=== PATIENT | male | born 1995 | race Caucasian/White ===

== ENCOUNTER 2019-08-22 08:17 | Emergency (ER) | payer OTHER, SELFPAY ==
[2019-08-22 08:48] VITALS: BP 129/78; PULSE 85; RESP 18; TEMP 37.2; O2SAT 98
--- NOTE | 2019-08-22 08:49 | ED.ABDPAIN ---
HPI - Abdominal Pain General Chief Complaint: Abdominal Pain Stated Complaint: Abdominal pain Time Seen by Provider: 08/22/19 08:49 Source: patient and RN notes reviewed History of Present Illness HPI narrative: Patient is a 24-year-old male that presents the urgent care with complaints of abdominal pain associated with nausea and vomiting. Patient states that he was not feeling well yesterday and he woke up at 3 AM with diarrhea and vomiting. Patient states is been a couple hours since he vomited but he has had 7-8 loose stools with the last one being just prior to arrival. Patient states the last thing he ate was [employer]. Denies of any fever. Currently states that the abdominal pain is not too severe . States that he is mainly concerned that he called off work and needs a work note. No other acute complaints. No acute distress noted. Denies any urinary symptoms. Denies any blood in the stool. Patient had a plan of care. Related Data Allergies Allergy/AdvReac Type Severity Reaction Status Date / Time No Known Allergies Allergy Verified 08/22/19 08:55 Review of Systems Review of Systems: Narrative: CONSTITUTIONAL: Denies fever, chills, or sweats. EYES: Denies visual changes, redness, or discharge. ENT: Denies rhinorrhea, congestion, sore throat, or otalgia. CARDIOVASCULAR: Denies chest pain, palpitations, or edema. RESPIRATORY: Denies cough or dyspnea. GASTROINTESTINAL: Reports abdominal pain, nausea, vomiting, diarrhea GENITOURINARY: Denies dysuria or hematuria. SKIN: Denies rash or itching. MUSCULOSKELETAL: Denies back pain, joint pain, or myalgia. NEUROLOGIC: Denies headache, numbness, or weakness. All other systems reviewed are negative, except as documented in HPI. PMFSH Comments At the time of my signature, I reviewed and agree with the nursing past medical, surgical, social, and family history. There is no relevant family history pertinent to the patient complaint. Exam Narrative: Exam Narrative: GENERAL: This is a well-nourished, well-developed patient, in no apparent distress. HEAD: normocephalic, atraumatic. EYES: PERRL. Sclera clear/white. Vision is grossly intact. EARS: External ears normal NOSE: External nose normal with no obvious nasal discharge THROAT: Mucous membranes moist NECK: Neck supple CARDIOVASCULAR: Regular rate and rhythm without murmurs, gallops, or rubs. RESPIRATORY: Clear to auscultation. Breath sounds equal bilaterally. No wheezes, rales, or rhonchi. GASTROINTESTINAL: Abdomen soft, diffuse abdominal tenderness-more noted in the epigastric region, nondistended. Bowel sounds are hyperactive. No hepato-splenomegaly, or palpable masses. No guarding. SKIN: warm, intact with no suspicious lesions or rash, good texture and turgor. NEURO: awake, alert, and oriented to person, place and time. There were no obvious focal neurologic abnormalities. EXTREMITIES: No clubbing, cyanosis, or edema. BACK: Negative bilateral CVA tenderness Course Vital Signs Vital signs: Vital Signs Temperature 99 F 08/22/19 08:48 Pulse Rate 85 08/22/19 08:48 Respiratory Rate 18 08/22/19 08:48 Blood Pressure 129/78 08/22/19 08:48 Pulse Oximetry 98 08/22/19 08:48 Temperature 99 F 08/22/19 08:48 Pulse Rate 85 08/22/19 08:48 Respiratory Rate 18 08/22/19 08:48 Blood Pressure 129/78 08/22/19 08:48 Pulse Oximetry 98 08/22/19 08:48 Reviewed MDM - Abdominal Pain MDM Narrative Medical decision making narrative: Advised the patient to avoid eating fried/fatty foods. Eat a bland diet for the next 48 hours. Increase water intake and avoid sugary and caffeinated drinks. Use Zofran as needed for nausea. May use Pepto-Bismol [id number] as needed. If you develop any increase in abdominal pain associated with fever and persistent nausea or vomiting?go straight to the emergency room. Follow-up with PCP within 2 to 5 days if worsening symptoms or failure to improve. Differential Diag
== END 2019-08-22 09:00 | disposition home or self-care (01) ==
PROVIDERS: Emergency Provider Nurse Practitioner Family
DX: R11.2 Nausea with vomiting, unspecified (principal); R19.7 Diarrhea, unspecified
CPT/HCPCS: 99203; G0463